=== PATIENT | female | born 1945 | race African-American/Black ===

== ENCOUNTER 2017-07-25 13:41 | Inpatient (IN) | payer OTHER ==
--- NOTE | 2017-07-25 13:52 | PDOC ---
Attending Attestation - Resident Resident Name: Jad Anand - ED Attending Attestation I have performed the following: I have examined & evaluated the patient, The case was reviewed & discussed with the resident, I agree w/resident's findings & plan, Exceptions are as noted - HPI HPI: 07/25/17 13:52 Chest Pain - Physicial Exam PE: 07/25/17 13:52 VSS, NAD - Medical Decision Making 07/25/17 13:[address] Anand assessment and plan
[2017-07-25] MEDS ORDERED: MAGNESIUM SULF 50% (8.12 MEQ/2 ML-1 GM VIAL) IVPB ONE (14:14)
[2017-07-25] MEDS ORDERED: MAGNESIUM SULF 50% (8.12 MEQ/2 ML-1 GM VIAL) ONE (14:18)
--- NOTE | 2017-07-25 14:24 | PDOC ---
History of Present Illness - General Chief Complaint: Chest Pain Stated Complaint: SLOW HEART BEAT Time Seen by Provider: 07/25/17 13:44 History Source: Patient, Family - History of Present Illness Initial Comments: 07/25/17 14:18 Patient is a 72F with history of HTN, HLD, and anemia here today complaining of vomiting, chest pain, fall and possible syncope. The patient reports that none of this happened, but her grandson reports that she called him saying that she had fallen in the bathroom and vomited several times. There was no blood in the vomit or trauma noted on the patient. EMS reports that she also complained of intermittent chest pain and diaphoresis. EMS also reports that she was madhav in the 50s with a systolic blood pressure of 180 before dropping her heart rate to 23 with a blood pressure of 90/60. She got 100ml of NS before their IV failed. Patient says that she did not fall, never had any chest pain and did not vomit. Her daughter says that she seems confused. Currently the patient only endorses some shortness of breath. Past History - Past Medical History Allergies/Adverse Reactions: Allergies Allergy/AdvReac Type Severity Reaction Status Date / Time amlodipine Allergy Verified 07/25/17 14:06 [place] And Derivatives Allergy Verified 07/25/17 14:06 Home Medications: Ambulatory Orders Aspirin [ASA -] 81 mg PO DAILY 07/25/17 Nifedipine [Procardia Xl] 60 mg PO DAILY 07/25/17 - Suicide/Smoking/Psychosocial Hx Smoking History: Former smoker Have you smoked in the past 12 months: No Information on smoking cessation initiated: No Review of Systems - Review of Systems Comments:: 07/25/17 14:24 GENERAL/CONSTITUTIONAL: No fever or chills. No weakness. HEAD, EYES, EARS, NOSE AND THROAT: No change in vision. No sore throat. CARDIOVASCULAR: No chest pain. Positive for shortness of breath RESPIRATORY: No cough, wheezing, or hemoptysis. GASTROINTESTINAL: Positive for nausea and vomting. Negative for diarrhea or constipation. GENITOURINARY: No dysuria, frequency, or change in urination. MUSCULOSKELETAL: Positive for left knee pain. No neck or back pain. SKIN: No rash NEUROLOGIC: No headache, vertigo, loss of consciousness, or change in strength/ sensation. HEMATOLOGIC/LYMPHATIC: Positive for history of anemia. Negative for history of easy bleeding, or history of blood clots. ALLERGIC/IMMUNOLOGIC: No hives or skin allergy. *Physical Exam - Vital Signs Last Vital Signs Temp Pulse Resp BP Pulse Ox 97.9 F 62 24 181/81 100 07/25/17 14:00 07/25/17 14:00 07/25/17 14:00 07/25/17 14:00 07/25/17 14:00 - Physical Exam Comments: 07/25/17 14:26 GENERAL: Awake, alert, and fully oriented, in no acute distress, repeating sentences, confused HEAD: No signs of trauma, normocephalic, atraumatic EYES: PERRLA, EOMI, sclera anicteric, conjunctiva clear ENT: Auricles normal inspection, hearing grossly normal, nares patent, oropharynx clear without exudates. Moist mucosa NECK: Normal ROM, supple, no lymphadenopathy, JVD, or masses, nontender to midline palpation BACK: No evidence of trauma, nontender to midline palpation ARMS: Shallow laceration on right arm, nontender to palpation, no other signs of trauma LUNGS: No distress, speaks full sentences, clear to auscultation bilaterally HEART: Regular rhythm, bradycardic, normal S1 and S2, no murmurs, rubs or gallops, peripheral pulses normal and equal bilaterally. ABDOMEN: Soft, nontender, normoactive bowel sounds. No guarding, no rebound. No masses EXTREMITIES: Normal inspection, Normal range of motion, no edema. No clubbing or cyanosis. NEUROLOGICAL: Cranial nerves II through XII grossly intact. Normal speech, no focal sensorimotor deficits, no ataxia, normal coordination SKIN: Warm, Dry, normal turgor, no rashes or lesions noted. Heart Score/ECG Review - History History: Highly suspicious - Electrocardiogram EKG: Normal - Age Age: >/= 65 - Risk Factors Risk Factors Heart Score: Yes Hx Hypercholesterolemia, Yes Hx Hypertension, Yes Smoking History Based on the list above the patient has:: >/=3 risk factors or Hx atherosclerotic disease - Troponin Troponin: </= normal limit - Score Heart Score - Total: 6 ED Treatment Course - LABORATORY CBC & Chemistry Diagram: 07/25/17 13:51 07/25/17 13:51 - RADIOLOGY Radiology Studies Ordered: Category Date Time Status HEAD CT WITHOUT CONTRAST [CT] Stat CT Scan 07/25/17 14:07 Ordered CHEST X-RAY PORTABLE* [RAD] Stat Radiology 07/25/17 14:07 Ordered Medical Decision Making - Medical Decision Making 07/25/17 14:28 Patient is a 72F with history of HTN, HLD, and anemia here today complaining of chest pain, sob, vomiting and diaphoresis. Bradycardic in the ED with stable blood pressures of 181/80. EMS report of bradycardia is concerning. Vital signs otherwise normal and stable. Differential diagnosis includes, but is not limited to: ACS, arrhythmia, mechanical fall, head trauma. EKG shows sinus bradycardia with 1st degree AV block (AZ 232) with a prolonged QTc (500). No ST elevations or depression. No t wave inversions. Combination of long qtc with 1st degree block with patient history is concerning. Will attempt to find an old EKG. Will evaluate this patient with EKG, continous monitoring, labs, chest x-ray, head ct, and UA. Will treat with 1g of mag. 07/25/17 15:04 Laboratory Tests 07/25/17 07/25/17 13:51 13:51 WBC 5.3 Hgb 12.8 Hct 39.6 Plt Count 230 Magnesium 2.2 Troponin I < 0.02 CBC normal, trop negative, mag normal. 07/25/17 15:05 CXR shows no acute cardiopulmonary process. 07/25/17 15:40 Spoke with JASWINDER Cruz, will admit to Med/Surg Tele. Consulting Dr Xiao, cardiology. *DC/Admit/Observation/Transfer Diagnosis at time of Disposition: Bradycardia - Discharge Dispostion Condition at time of disposition: Stable Admit: Yes
[2017-07-25 14:34] LABS: INR 0.98 (0.82-1.09); PROTHROMBIN TIME (PATIENT) 10.8 SEC (9.98-11.88)
[2017-07-25 14:36] LABS: EOSINOPHIL 0.4 % (0-4.5); MCH 28.9 pg (25.7-33.7); MCHC 32.4 g/dl (32.0-36.0); MEAN CELL VOLUME 89.1 fl (80-96); MEAN PLT VOLUME 8.8 fl (7.5-11.1); NEUTROPHILS 60.8 % (42.8-82.8); PLATELET COUNT 230 K/MM3 (134-434); WHITE BLOOD COUNT 5.3 K/mm3 (4.0-10.0)
[2017-07-25 14:44] LABS: ALBUMIN 3.8 g/dl (3.4-5.0); ALK PHOS 75 U/L (45-117); ANION GAP 12 (8-16); BILIRUBIN,TOTAL 0.4 mg/dL (0.2-1.0); CALCIUM 9.5 mg/dL (8.5-10.1); CO2 26 mmol/L (21-32); CPK 127 IU/L (26-192); CREATININE 0.8 mg/dL (0.55-1.02); GLUCOSE,RANDOM 150 mg/dL (74-106); MAGNESIUM 2.2 mg/dL (1.8-2.4); SGOT/AST 14 U/L (15-37); SGPT/ALT 19 U/L (12-78); TOT PROT 7.2 g/dl (6.4-8.2)
[2017-07-25 14:46] LABS: TROPONIN I < 0.02 ng/ml (0.00-0.05)
[2017-07-25 15:08] LABS: URINE APPEARANCE CLEAR; URINE BILIRUBIN NEGATIVE (NEGATIVE); URINE BLOOD 1+ (NEGATIVE); URINE COLOR STRAW; URINE GLUCOSE (UA) NEGATIVE (NEGATIVE); URINE KETONE 1+ (NEGATIVE); URINE LEUK ESTERASE NEGATIVE (NEGATIVE); URINE NITRITE NEGATIVE (NEGATIVE); URINE PROTEIN NEGATIVE (NEGATIVE); URINE UROBILINOGEN NEGATIVE mg/dL (0.2-1.0)
[2017-07-25 15:11] LABS: URINE RBC 2 /hpf (0-3); URINE WBC 2 /hpf (3-5)
[2017-07-25] MEDS ORDERED: POTASSIUM CHLORIDE TABS 10 MEQ TABLET.ER (FP) PO ONE (16:46)
[2017-07-25 17:33] VITALS: BMI 30.1
--- NOTE | 2017-07-25 21:02 | CONS ---
DATE OF CONSULTATION: 07/25/2017 REQUESTING PHYSICIAN: Nestor Cruz M.D. CARDIOLOGY CONSULTATION CHIEF COMPLAINT: 1. Lightheadedness. 2. Feeling of faintness. 3. History of chest pain. HISTORY OF PRESENT ILLNESS: Patient is a 72-year-old -Hung[place] female with history of hypertension, hypercholesterolemia, apparently had an episode of retrosternal chest tightness that occurred at rest. It was nonradiating, nonpleuritic in nature, and she also had sudden urge to micturate and ran to the bathroom, and after she completed the act, she got up, became lightheaded, and apparently fell to the floor and felt lightheaded but denies having presyncope or syncope. According to the hospital record, she also vomited. Paramedics were called, and while she was being transported initially was found to have systolic hypertension and apparently became bradycardic and blood pressure dropped to 90/60 mmHg. She was given normal saline. Patient states that she has never experienced similar symptoms in the past. There is no history of exertional, chest, arm, back, jaw pain, or discomfort. No history of exertional dyspnea, paroxysmal nocturnal dyspnea, or orthopnea. No history of palpitations, lightheadedness, dizziness, or syncope in the past. She denies having diaphoresis. Denies having diabetes mellitus. PAST HISTORY: As mentioned in the history of present illness. SURGICAL HISTORY: 1. Status post appendectomy. 2. Status post hysterectomy. 3. Status post appendectomy. SOCIAL HISTORY: She is a , has 3 sons and a daughter who are healthy. Was a smoker, since the age of 18, and stopped 5 years ago, apparently smoked half a pack of cigarettes per day. She has a social drink and a cup of coffee. FAMILY HISTORY: Father in his 70s of unknown cause. Mother in her 80s, she was hypertensive. Has 3 brothers and 2 sisters. Apparently 2 of her siblings have high blood pressure. There is strong family history of hypertension on the maternal side. ALLERGIES: None reported. MEDICATION: 1. Aspirin 81 mg p.o. daily. 2. Nifedipine extended release 60 mg p.o. daily. REVIEW OF SYSTEMS: Constitutional: No history of chills, fever, or night sweats. No history of unintentional weight loss. HEENT: No history of recent headaches, diplopia, blurred vision. No history of epistaxis, hoarseness, tinnitus, or deafness reported. Cardiovascular: See history of present illness. Respiratory: No history of cough, expectoration or hemoptysis. Gastrointestinal: See history of present illness. No history of abdominal pain or discomfort. No history of melena or hematemesis. No history of change in bowel habits. Neurological: No history of seizures, or documented syncope. No history of focal weakness. Endocrine: No history of polyuria, polydipsia. Denies intolerance to cold or warm weather. Musculoskeletal: No history of myalgias or arthralgias. Hematological: No history of ecchymosis, bleeding, or anemia. PHYSICAL EXAMINATION: General: A 72-year-old alert female at the time of examination was in no distress, no pallor, cyanosis, clubbing, or jaundice. Vital signs: Blood pressure 165/109 mmHg. Pulse 56 beats per minute and regular. Temperature 98.5 degrees Fahrenheit. Weight 170 pounds. Oxygen saturation 97% on 2 L of oxygen. Neck: Supple. No jugulovenous distention, carotids were 2+, upstrokes were normal, no bruits were heard, and no thyromegaly was present. Heart: PMI was in the 5th intercostal space, no heaves or thrills. S1 and S2 were normal. No murmur or gallops were heard. Lungs: Clear on auscultation. Chest: Normal AP diameter. Expansion was symmetrical. Abdomen: Soft, protuberant, nontender, no hepatosplenomegaly or palpable masses were felt. No bruits were heard, and bowel sounds were present. Extremities: No calf tenderness or dependent edema, femoral pulses were 2+, dorsalis pedis and posterior tibial pulses could not be palpated. ECG dated July 25, 2017, at 1351 hours, sinus rhythm with borderline first-degree AV block, atypical R wave progression in V2, nonspecific ST abnormalities, no previous ECG is available for comparison. X-ray chest, impression: Unremarkable examination. CT of the head, impression: Moderate atrophy and mild chronic microvascular ischemic changes. No acute intracranial pathology is identified. The calvarium is intact. Correlate clinically to determine further evaluation and followup. CBC: WBC count 5300, hemoglobin 12.8 g/dL, platelet count 230,000. Differential was normal. Chemistry: Sodium 141, potassium 3.4, chloride 103, CO2 of 26 mmol/L. BUN 13, creatinine 0.8 mg/dL. Random glucose 150 mg/dL. Calcium was 9.5 mg/dL. Magnesium was 2.2. CK was 127, troponin was less than 0.02. IMPRESSION: 1. Chest pain syndrome, etiology to be determined, coronary artery disease, angina pectoris needs to be excluded. 2. Post micturition near-syncopal episode. 3. Hypertension, hypertensive cardiovascular disease, poorly controlled. 4. History of hypercholesterolemia. RECOMMENDATION: 1. Serial EKG and enzymes. 2. Control of blood pressure. 3. Add Benicar 20 mg p.o. daily. 4. Continue Procardia at 60 mg p.o. daily. 5. Close cardiac monitoring. 6. Holter monitor. 7. Echocardiogram for evaluation of left ventricular systolic function. 8. T3, T4, TSH. 9. Further suggestions if necessary will depend upon the results of the above mentioned tests. Thank you for your referral. Philippe [id number]
[2017-07-25] MEDS: VALSARTAN 160 MG TABLET (UD) PO SCH (22:09)
[2017-07-25 22:10] LABS: CPK 170 IU/L (26-192)
[2017-07-25 22:11] LABS: TROPONIN I < 0.02 ng/ml (0.00-0.05)
[2017-07-26 08:09] LABS: MCH 29.3 pg (25.7-33.7); MCHC 32.8 g/dl (32.0-36.0); MEAN CELL VOLUME 89.3 fl (80-96); MEAN PLT VOLUME 8.5 fl (7.5-11.1); PLATELET COUNT 233 K/MM3 (134-434); RDW 14.2 % (11.6-15.6); WHITE BLOOD COUNT 6.2 K/mm3 (4.0-10.0)
[2017-07-26 08:31] LABS: CPK 226 IU/L (26-192); TROPONIN I < 0.02 ng/ml (0.00-0.05)
[2017-07-26 08:39] LABS: ALBUMIN 3.2 g/dl (3.4-5.0); ANION GAP 5 (8-16); BILIRUBIN,TOTAL 0.3 mg/dL (0.2-1.0); CALCIUM 9.4 mg/dL (8.5-10.1); CHOLESTEROL 229 mg/dL (50-200); CO2 30 mmol/L (21-32); CREATININE 0.7 mg/dL (0.55-1.02); GLUCOSE,RANDOM 81 mg/dL (74-106); SGOT/AST 15 U/L (15-37); SGPT/ALT 17 U/L (12-78); TOT PROT 6.3 g/dl (6.4-8.2)
[2017-07-26 08:46] LABS: ALK PHOS 63 U/L (45-117); FREE T4 0.89 ng/dl (0.76-1.46); THYROID STIMULATING HORMONE 1.13 uIU/ml (0.358-3.74)
[2017-07-26] MEDS: ASPIRIN COATED 81 MG TABLET.EC PO SCH (09:28)
[2017-07-26] MEDS: VALSARTAN 160 MG TABLET (UD) PO SCH (09:28)
--- NOTE | 2017-07-26 09:55 | HP ---
DATE OF ADMISSION: DATE OF DICTATION: 07/26/2017 HISTORY OF PRESENT ILLNESS: This is a 72-year-old -[place] female known to have hypertension, hypercholesterolemia. Yesterday, she got admitted with chest pain, and patient fell in the bathroom. She also had an episode of vomiting in the ER. When she came in, she was bradycardic. So, she got admitted with a diagnosis of rule out ME, chest pain, and cardiac arrhythmia. SURGICAL HISTORY: She had appendectomy and hysterectomy in the past. 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 She has family. Her . History of smoking in the past, but she is not a smoker now. MEDICATIONS: At present, she is on aspirin and nifedipine, Procardia XL 60 mg once a day. ALLERGIES: No known allergies. PHYSICAL EXAMINATION: Vital signs: This morning, her blood pressure is 150/70, pulse 56, respirations 20, temperature 98. HEENT: Unremarkable. Neck: Supple. No JVD. Lungs: Clear. Heart: S1, S2 normal. No S3, S4. Breasts: No masses. Abdomen: Soft. Extremities: Legs no edema. Neurologic: Grossly normal. LABORATORY REPORTS: WBC 6.2, hemoglobin 12.1, platelets 233. Chemistry: Sodium 142, potassium 3.6, chloride 107, CO2 of 30, BUN 11, creatinine 0.7. Her CPK MB is high 4.7. Troponin three times is negative. EKG normal sinus rhythm, sinus bradycardia. Thyroid functions are also normal. Chest x-ray negative. CT of the head mild chronic microvascular ischemic changes. IMPRESSION/FINAL DIAGNOSIS: Chest pain, rule out myocardial infarction, syncope, bradycardia PLAN: Cardiology followup with Dr. Saenz, cardiac monitoring, continue present medications. Philippe [id number]
[2017-07-26] MEDS ORDERED: NIFEDIPINE PO SCH (10:00)
--- NOTE | 2017-07-26 10:24 | EKG ---
Test Reason : Blood Pressure : / mmHG Vent. Rate : 051 BPM Atrial Rate : 051 BPM P-R Int : 198 ms QRS Dur : 098 ms QT Int : 442 ms P-R-T Axes : 060 -08 004 degrees QTc Int : 407 ms SINUS BRADYCARDIA OTHERWISE NORMAL ECG WHEN COMPARED WITH ECG OF 25-JUL-2017 13:51, [place] INTERVAL HAS DECREASED QT HAS SHORTENED Confirmed by ALVARO UMANA MD ([id number]) on 07/26/2017 10:24:15 AM Referred By: SHEIK SIMPSON DRH Confirmed By:ALVARO UMANA MD
--- NOTE | 2017-07-26 14:40 | EKG ---
Test Reason : Blood Pressure : / mmHG Vent. Rate : 059 BPM Atrial Rate : 059 BPM P-R Int : 232 ms QRS Dur : 100 ms QT Int : 506 ms P-R-T Axes : 058 018 043 degrees QTc Int : 500 ms SINUS BRADYCARDIA WITH 1ST DEGREE A-V BLOCK PROLONGED QT ABNORMAL ECG NO PREVIOUS ECGS AVAILABLE Confirmed by ALVARO UMANA MD ([id number]) on 07/26/2017 2:40:38 PM Referred By: Confirmed By:ALVARO UMANA MD
[2017-07-27] MEDS: ASPIRIN COATED 81 MG TABLET.EC PO SCH (09:16)
[2017-07-27] MEDS: VALSARTAN 160 MG TABLET (UD) PO SCH (09:16)
[2017-07-27] MEDS: NIFEdipine E.R 60 MG TABLET (UD) PO SCH (09:20)
--- NOTE | 2017-07-27 09:20 | PN ---
Progress Note, Physician Chief Complaint: feels better History of Present Illness: Admitted with near syncope ,chest pain and Bacardicardia - Current Medication List Current Medications: Active Medications Aspirin (Ecotrin -) 81 mg PO DAILY [facility] Last Admin: 07/26/17 09:28 Dose: 81 mg Non-Formulary Med-Pt 's Own Med ( Procardia Xl 60mg Brand) 1 each PO DAILY [facility] Valsartan (Diovan -) 160 mg PO DAILY [facility] Last Admin: 07/26/17 09:28 Dose: 160 mg - Objective Vital Signs: Vital Signs Temperature 97.4 F L 07/27/17 06:00 Pulse Rate 63 07/27/17 06:00 Respiratory Rate 20 07/27/17 06:00 Blood Pressure 141/68 07/27/17 06:00 O2 Sat by Pulse Oximetry (%) 96 07/26/17 21:00 Constitutional: Yes: No Distress Eyes: Yes: WNL HENT: Yes: WNL Neck: Yes: WNL Cardiovascular: Yes: WNL Respiratory: Yes: WNL Gastrointestinal: Yes: Normal Bowel Sounds ...Rectal Exam: Yes: Deferred Genitourinary: Yes: WNL Breast(s): Yes: WNL Musculoskeletal: Yes: WNL Extremities: Yes: WNL Edema: No Neurological: Yes: Alert Labs: CBC, BMP 07/26/17 05:47 07/26/17 05:47 INR, PTT INR 0.98 (0.82-1.09) 07/25/17 13:51 - ....Imaging Ultrasound: Pending Assessment/Plan After echocardiogram possible discharge home
--- NOTE | 2017-07-27 10:35 | PN ---
Progress Note (short form) - Note Progress Note: S: 72 year old female history of HTN, hypercholesterolemia, admitted with retrosternal chest discomfort that occurred at rest, followed by lightheadedness , apparently vomited and paramedics found her bradycardic and had a low BP. The lightheadedness occurred after she had urgency of micturation. Patient has had no further chest discomfort, dyspnea, PND, or orthopnea. No history of lightheadedness, dizziness, presyncope or syncope. While in the hospital she was found to be hypertensive. Active Medications Generic Name Dose Route Start Last Admin Trade Name Freq PRN Reason Stop Dose Admin Aspirin 81 mg 07/26/17 10:00 07/27/17 09:16 Ecotrin - PO 81 mg DAILY LEELEE Administration Nifedipine 60 mg 07/27/17 10:00 07/27/17 09:20 Procardia Xl - PO 60 mg DAILY LEELEE Administration Valsartan 160 mg 07/25/17 19:45 07/27/17 09:16 Diovan - PO 160 mg DAILY LEELEE Administration O: 72 year old female was in no acute distress, no pallor, cyanosis, clubbing, or jaundice. Last Vital Signs Temp Pulse Resp BP Pulse Ox 98.1 F 60 18 157/90 96 07/27/17 09:59 07/27/17 09:59 07/27/17 09:59 07/27/17 09:59 07/27/17 09:00 Neck: Supple, no JVD, negative HJR, carotids were equal and upstrokes were normal, no thyromegaly appreciated. Heart: PMI was in the 5th intercostal space, no heaves or thrills, S1 and S2 were normal. No murmurs or gallops were appreciated. Lungs: Clear on auscultation bilaterally. Abdomen: Soft, nontender, no hepatosplenomegaly appreciated, and no palpable masses were felt. Extremities: No calf tenderness or dependent edema. Pulses are normal. CBC, BMP 07/26/17 05:47 07/26/17 05:47 Laboratory Results - last 24 hr 07/26/17 05:47 Free T3 2.3 Impression: 1. Lightheadedness most likely related to micturation. 2. Hypertension, hypertensive cardiovascular disease 3. Hypercholesterolemia. Recommendations: 1. Consider adding statins as total and LDL cholesterol are elevated. 2. Holter monitor. 3. Echocardiogram. 4. May require further adjustment of antihypertensive therapy if BP remains elevated. Attestation: Documentation prepared by Bernice Lord, acting as remote medical coder for Davin Saenz MD.
[2017-07-28 06:08] VITALS: TEMP 98.1
[2017-07-28] MEDS: VALSARTAN 160 MG TABLET (UD) PO SCH (09:54)
[2017-07-28] MEDS: ASPIRIN COATED 81 MG TABLET.EC PO SCH (09:54)
[2017-07-28] MEDS: NIFEdipine E.R 60 MG TABLET (UD) PO SCH (09:54)
--- NOTE | 2017-07-28 10:54 | DS ---
Physical Examination Vital Signs: Vital Signs Temperature 98.1 F 07/28/17 06:07 Pulse Rate 63 07/28/17 06:07 Respiratory Rate 20 07/28/17 06:07 Blood Pressure 144/65 07/28/17 06:07 O2 Sat by Pulse Oximetry (%) 98 07/27/17 21:00 Findings/Remarks: NJ ruled out,echo borderline LVH Constitutional: Yes: No Distress Eyes: Yes: Occular Prosthesis HENT: Yes: WNL, Tonsillar Exudate Cardiovascular: Yes: WNL Respiratory: Yes: WNL Gastrointestinal: Yes: WNL ...Rectal Exam: Yes: Deferred Renal/: Yes: WNL Breast(s): Yes: WNL Musculoskeletal: Yes: WNL Extremities: Yes: WNL Edema: No Peripheral Pulses WNL: Yes Integumentary: Yes: WNL Neurological: Yes: WNL Psychiatric: Yes: WNL Labs: CBC, BMP 07/26/17 05:47 07/26/17 05:47 Discharge Summary Reason For Visit: BRADYCARDIA Current Active Problems Bradycardia (Acute) Condition: Stable - Home Medications Comprehensive Discharge Medication List: Ambulatory Orders Aspirin [ASA -] 81 mg PO DAILY 07/25/17 Nifedipine [Procardia Xl] 60 mg PO DAILY 07/25/17
[2017-07-28 13:46] VITALS: BP 127/68; PULSE 62
[2017-07-29] MEDS ORDERED: ASPIRIN 81 MG CHEWABLE TABLETS PO SCH (10:00)
[2017-07-29] MEDS ORDERED: PATIENT'S OWN MEDICATION (NON-FORMULARY) (Nifedipine [Procardia Xl] 60 MG) PO SCH (10:00)
== END 2017-07-28 13:42 | disposition home or self-care (01) | DRG 310 ==
LOC: JER 13:41 → JERBED 15:42 → J4W 17:11
PROVIDERS: ADMIT Internal Medicine; ATTEND Internal Medicine
DX: R00.1 Bradycardia, unspecified (principal); E78.5 Hyperlipidemia, unspecified; R55 Syncope and collapse; I11.9 Hypertensive heart disease without heart failure; R07.9 Chest pain, unspecified
CPT/HCPCS: 36415; 70450-TC; 71010-TC; 80053; 80061; 81003; 81015; 82553; 83721; 83735; 84439; 84443; 84481; 84484; 85025; 85027; 85610; 93005; 93010; 93306-TC; 99284-25

== ENCOUNTER 2021-01-10 07:08 | Day surgery (SDC) | payer OTHER ==
[2020-12-27 12:26] VITALS: BMI 26.5
[2021-01-10] MEDS ORDERED: CIPROFLOXACIN HCL 0.3% OPHTH 2.5ML BOTTLE ONE (08:13)
[2021-01-10] MEDS ORDERED: PHENYLEPHRINE 2.5% OPHTH SOLN 15 ML BOTTLE ONE (08:13)
[2021-01-10] MEDS ORDERED: CYCLOPENTOLATE 2% OPHTH SOLN 2 ML BOTTLE ONE (08:13)
[2021-01-10] MEDS ORDERED: TETRACAINE 0.5% OPHTH SOLN 2 ML BOTTLE ONE ×2 (08:14→09:51)
[2021-01-10] MEDS ORDERED: TROPICAMIDE 1% OPHTH SOLN 15 ML BOTTLE ONE (08:14)
[2021-01-10] MEDS ORDERED: CIPROFLOXACIN HCL 0.3% OPHTH 2.5ML BOTTLE OD SCH (08:45)
[2021-01-10] MEDS ORDERED: PHENYLEPHRINE 2.5% OPHTH SOLN 15 ML BOTTLE OD SCH (08:45)
[2021-01-10] MEDS ORDERED: TROPICAMIDE 1% OPHTH SOLN 15 ML BOTTLE OD SCH (08:45)
[2021-01-10] MEDS ORDERED: CYCLOPENTOLATE 2% OPHTH SOLN 2 ML BOTTLE OD SCH (08:45)
[2021-01-10] MEDS ORDERED: MIDAZOLAM HCL 2 MG/2 ML SINGLE DOSE VIAL ONE (09:11)
[2021-01-10] MEDS ORDERED: TRYPAN BLUE 0.5 ML DISP.SYRIN ONE (09:18)
[2021-01-10] MEDS ORDERED: BSS (NA/CA/MG/K) BALANCED SALT SOLUTION OPHTH SOLN 15 ML BOTTLE ONE (09:51)
[2021-01-10] MEDS ORDERED: EPI-SHUGARCAINE (EPINEPHRINE 0.025% & LIDOCAINE-PF 0.75%) 4ML ONE (09:51)
[2021-01-10] MEDS ORDERED: POVIDONE-IODINE 5% OPHTHALMIC PREP 30 ML SOLUTION ONE (09:51)
[2021-01-10] MEDS ORDERED: ACETYLCHOLINE 1:100 INTRA-OCUL 20 MG/2 ML KIT ONE (09:51)
[2021-01-10] MEDS ORDERED: TETRACAINE 0.5% OPHTH SOLN 2 ML BOTTLE OD ONE (10:00)
[2021-01-10 10:05] VITALS: PULSE 74
[2021-01-10 10:45] VITALS: BP 167/70; TEMP 98
== END 2021-01-10 10:45 | disposition home or self-care (01) ==
LOC: FASU 07:08
PROVIDERS: ATTEND Ophthalmology
PROC: 08RJ3JZ Replacement of Right Lens with Synthetic Substitute, Percutaneous Approach (ICD-10-PCS; principal; 2021-01-10 09:18)
DX: H25.89 Other age-related cataract (principal)

== ENCOUNTER 2021-02-14 08:46 | Day surgery (SDC) | payer OTHER ==
[2021-02-08 17:31] VITALS: BMI 26.5
[2021-02-14] MEDS: CYCLOPENTOLATE 2% OPHTH SOLN 2 ML BOTTLE ONE ×3 (09:50→10:00)
[2021-02-14] MEDS: TROPICAMIDE 1% OPHTH SOLN 15 ML BOTTLE ONE ×3 (09:50→10:00)
[2021-02-14] MEDS: CIPROFLOXACIN 0.3% EYE DROPS 5 ML BOTTLE ONE ×3 (09:50→10:00)
[2021-02-14] MEDS: PHENYLEPHRINE 2.5% OPHTH SOLN 15 ML BOTTLE ONE ×3 (09:50→10:00)
[2021-02-14] MEDS ORDERED: POVIDONE-IODINE 5% OPHTHALMIC PREP 30 ML SOLUTION ONE (10:35)
[2021-02-14] MEDS ORDERED: BETAXOLOL HCL 0.25% OPHTHALMIC 10 ML DROPSBTL ONE (10:35)
[2021-02-14] MEDS ORDERED: TETRACAINE 0.5% OPHTH SOLN 2 ML BOTTLE ONE (10:35)
[2021-02-14] MEDS ORDERED: EPI-SHUGARCAINE (EPINEPHRINE 0.025% & LIDOCAINE-PF 0.75%) 4ML ONE (10:35)
[2021-02-14] MEDS ORDERED: TRYPAN BLUE 0.5 ML DISP.SYRIN ONE (10:35)
[2021-02-14] MEDS ORDERED: ACETYLCHOLINE 1:100 INTRA-OCUL 20 MG/2 ML KIT ONE (10:36)
[2021-02-14] MEDS ORDERED: MIDAZOLAM HCL 2 MG/2 ML SINGLE DOSE VIAL ONE (10:48)
[2021-02-14 11:47] VITALS: BP 144/70; PULSE 53
[2021-02-14 12:03] VITALS: TEMP 98
== END 2021-02-14 12:06 | disposition home or self-care (01) ==
LOC: FASU 08:46
PROVIDERS: ATTEND Ophthalmology
PROC: 08RK3JZ Replacement of Left Lens with Synthetic Substitute, Percutaneous Approach (ICD-10-PCS; principal; 2021-02-14 10:56)
DX: H25.89 Other age-related cataract (principal)

== ENCOUNTER 2021-11-13 20:40 | Inpatient (IN) | payer OTHER ==
[2021-11-13 21:06] VITALS: BMI 28.3
[2021-11-13 22:45] LABS: BASO % 0.5 % (0-2.0); HEMATOCRIT 40.5 % (32.4-45.2); HEMOGLOBIN 12.8 GM/dL (10.7-15.3); LYMPH % 13.3 % (8-40); MCH 29.2 pg (25.7-33.7); MCHC 31.7 g/dl (32.0-36.0); MEAN CELL VOLUME 92.2 fl (80-96); MEAN PLT VOLUME 8.4 fl (7.5-11.1); MONO % 4.4 % (3.8-10.2); NEUT % 81.8 % (42.8-82.8); PLATELET COUNT 176 10^3/uL (134-434); RBC 4.39 M/mm3 (3.60-5.2); RDW 12.5 % (11.6-15.6); WHITE BLOOD COUNT 6.2 K/mm3 (4.0-10.0)
[2021-11-13 22:52] LABS: INR 0.98 (0.83-1.09); PROTHROMBIN TIME (PATIENT) 11.3 SEC (9.7-13.0)
[2021-11-13 22:54] LABS: ACTIVATED PTT 22.5 SECONDS (25.2-36.5); CHLORIDE 105 mmol/L (98-107); SODIUM 141 mmol/L (136-145)
[2021-11-13 22:56] LABS: CALCIUM 9.4 mg/dL (8.5-10.1)
[2021-11-13 22:57] LABS: ALBUMIN 3.8 g/dl (3.4-5.0); ANION GAP 9 MMOL/L (8-16); CO2 27 mmol/L (21-32); GLUCOSE,RANDOM 121 mg/dL (74-106)
[2021-11-13 23:00] LABS: CREATININE 0.9 mg/dL (0.55-1.3); SGOT/AST 18 U/L (15-37); SGPT/ALT 18 U/L (13-61)
[2021-11-13 23:02] LABS: BILIRUBIN,TOTAL 0.2 mg/dL (0.2-1); TOT PROT 7.4 g/dl (6.4-8.2)
[2021-11-13 23:03] LABS: ALK PHOS 73 U/L (45-117)
[2021-11-13] MEDS ORDERED: CEFTRIAXONE 1,000 MG in DEXTROSE 5%-WATER - 50 ML IVPB ONE (23:54)
[2021-11-13] MEDS ORDERED: AZITHROMYCIN IVPB 500 MG in DEXTROSE 5%-WATER - 250 ML IVPB ONE (23:54)
[2021-11-14] MEDS ORDERED: AZITHROMYCIN IVPB 500 MG/250 ML BAG IVPB ONE (00:03)
[2021-11-14] MEDS ORDERED: CEFTRIAXONE 1 GM/50 ML BAG ONE (00:03)
[2021-11-14] MEDS ORDERED: POLYETHYLENE GLYCOL (HEALTHYLAX) 3350 17 GM PACKET PO PRN (00:52)
[2021-11-14 05:02] LABS: BASO % 0.8 % (0-2.0); HEMATOCRIT 37.2 % (32.4-45.2); HEMOGLOBIN 12.4 GM/dL (10.7-15.3); LYMPH % 28.1 % (8-40); MCH 30.2 pg (25.7-33.7); MCHC 33.5 g/dl (32.0-36.0); MEAN CELL VOLUME 90.4 fl (80-96); MEAN PLT VOLUME 7.8 fl (7.5-11.1); MONO % 6.4 % (3.8-10.2); NEUT % 64.7 % (42.8-82.8); PLATELET COUNT 161 10^3/uL (134-434); RBC 4.11 M/mm3 (3.60-5.2); RDW 12.6 % (11.6-15.6); WHITE BLOOD COUNT 4.8 K/mm3 (4.0-10.0)
[2021-11-14 05:21] LABS: CHLORIDE 105 mmol/L (98-107); SODIUM 142 mmol/L (136-145)
[2021-11-14 05:23] LABS: ANION GAP 7 MMOL/L (8-16); BLOOD UREA NITROGEN 17.2 mg/dL (7-18); CALCIUM 9.1 mg/dL (8.5-10.1); CO2 30 mmol/L (21-32); GLUCOSE,RANDOM 112 mg/dL (74-106); MAGNESIUM 2.2 mg/dL (1.8-2.4)
[2021-11-14 05:27] LABS: CREATININE 0.8 mg/dL (0.55-1.3); LDH 193 U/L (84-246); PHOSPHOROUS 3.1 mg/dL (2.5-4.9)
[2021-11-14 08:05] LABS: EPI CELLS 3 /uL (0-25.1); HYALINE CASTS 2 /uL (0-3.1); URINE APPEARANCE CLEAR; URINE BACTERIA 0 /uL (0-1359); URINE BILIRUBIN NEGATIVE (NEGATIVE); URINE COLOR YELLOW; URINE GLUCOSE (UA) NEGATIVE (NEGATIVE); URINE KETONE NEGATIVE (NEGATIVE); URINE LEUK ESTERASE NEGATIVE (NEGATIVE); URINE NITRITE NEGATIVE (NEGATIVE); URINE PROTEIN 1+ (NEGATIVE); URINE RBC 14 /uL (0-23.9); URINE UROBILINOGEN 0.2 mg/dL (0.2-1.0); URINE WBC 5 /uL (0-25.8)
[2021-11-14] MEDS ORDERED: amLODIPine BESYLATE 2.5 MG TABLET (FP) PO SCH (10:00)
[2021-11-14] MEDS ORDERED: ASCORBIC ACID 500 MG TABLET (FP) ONE (10:02)
[2021-11-14] MEDS ORDERED: amLODIPine BESYLATE 2.5 MG TABLET (FP) ONE ×2 (10:03→18:37)
[2021-11-14] MEDS ORDERED: ZINC SULFATE 220 MG CAPSULE (FP) ONE (10:03)
[2021-11-14] MEDS ORDERED: LOSARTAN POTASSIUM 50 MG TABLET ONE (10:03)
[2021-11-14] MEDS ORDERED: CHOLECALCIFEROL (VIT D3) 1,000 UNIT (25 MCG) TABLET ONE (10:03)
[2021-11-14] MEDS ORDERED: ENOXAPARIN NA (PORCINE) 40 MG/0.4 ML DISP.SYRIN SQ ONE (10:04)
[2021-11-14] MEDS: LOSARTAN POTASSIUM 50 MG TABLET PO SCH ×2 (11:30→12:50)
[2021-11-14] MEDS: CHOLECALCIFEROL (VIT D3) 1,000 UNIT (25 MCG) TABLET PO SCH (11:30)
[2021-11-14] MEDS: ENOXAPARIN NA (PORCINE) 40 MG/0.4 ML DISP.SYRIN SQ SCH (11:30)
[2021-11-14] MEDS: ASCORBIC ACID 500 MG TABLET (FP) PO SCH ×2 (11:30→12:50)
[2021-11-14] MEDS: ZINC SULFATE 220 MG CAPSULE (FP) PO SCH (11:30)
[2021-11-14] MEDS: MEMANTINE HCL 5 MG TABLET (UD) PO SCH ×3 (12:50→22:56)
[2021-11-14] MEDS ORDERED: amLODIPine BESYLATE 2.5 MG TABLET (FP) PO ONE (17:10)
[2021-11-14] MEDS ORDERED: amLODIPine BESYLATE 5 MG TABLET (FP) ONE (18:37)
[2021-11-14] MEDS ORDERED: CEFTRIAXONE 1 GM in DEXTROSE 5%-WATER - 50 ML IVPB SCH (22:00)
[2021-11-15] MEDS ORDERED: AZITHROMYCIN IVPB 500 MG in DEXTROSE 5%-WATER - 250 ML IVPB SCH (02:00)
[2021-11-15 08:42] LABS: HEMATOCRIT 37.7 % (32.4-45.2); HEMOGLOBIN 12.7 GM/dL (10.7-15.3); MCH 30.4 pg (25.7-33.7); MCHC 33.6 g/dl (32.0-36.0); MEAN CELL VOLUME 90.4 fl (80-96); MEAN PLT VOLUME 8.3 fl (7.5-11.1); PLATELET COUNT 154 10^3/uL (134-434); RBC 4.17 M/mm3 (3.60-5.2); RDW 12.6 % (11.6-15.6); WHITE BLOOD COUNT 4.2 K/mm3 (4.0-10.0)
[2021-11-15] MEDS: ACETAMINOPHEN 325 MG TABLET (FP) PO PRN ×2 (09:00→19:10)
[2021-11-15] MEDS ORDERED: amLODIPine BESYLATE 5 MG TABLET (FP) ONE (09:00)
[2021-11-15] MEDS ORDERED: ACETAMINOPHEN 325 MG TABLET (FP) ONE ×2 (09:00→19:09)
[2021-11-15] MEDS ORDERED: ZINC SULFATE 220 MG CAPSULE (FP) ONE (09:00)
[2021-11-15] MEDS ORDERED: ASCORBIC ACID 500 MG TABLET (FP) ONE (09:00)
[2021-11-15] MEDS ORDERED: CHOLECALCIFEROL (VIT D3) 1,000 UNIT (25 MCG) TABLET ONE (09:01)
[2021-11-15] MEDS ORDERED: ENOXAPARIN NA (PORCINE) 40 MG/0.4 ML DISP.SYRIN SQ ONE (09:01)
[2021-11-15 09:03] LABS: BLOOD UREA NITROGEN 15.3 mg/dL (7-18); CALCIUM 8.9 mg/dL (8.5-10.1)
[2021-11-15 09:04] LABS: MAGNESIUM 2.3 mg/dL (1.8-2.4)
[2021-11-15 09:07] LABS: CREATININE 0.8 mg/dL (0.55-1.3); PHOSPHOROUS 3.2 mg/dL (2.5-4.9)
[2021-11-15] MEDS ORDERED: LOSARTAN POTASSIUM 50 MG TABLET ONE (09:58)
[2021-11-15] MEDS ORDERED: amLODIPine BESYLATE 5 MG TABLET (FP) PO SCH (10:00)
[2021-11-15] MEDS: ENOXAPARIN NA (PORCINE) 40 MG/0.4 ML DISP.SYRIN SQ SCH (10:12)
[2021-11-15] MEDS: ASCORBIC ACID 500 MG TABLET (FP) PO SCH (10:12)
[2021-11-15] MEDS: amLODIPine BESYLATE 5 MG TABLET (FP) PO SCH (10:12)
[2021-11-15] MEDS: MEMANTINE HCL 5 MG TABLET (UD) PO SCH ×2 (10:12→23:52)
[2021-11-15] MEDS: LOSARTAN POTASSIUM 50 MG TABLET PO SCH (10:12)
[2021-11-15] MEDS: CHOLECALCIFEROL (VIT D3) 1,000 UNIT (25 MCG) TABLET PO SCH (10:12)
[2021-11-15] MEDS: ZINC SULFATE 220 MG CAPSULE (FP) PO SCH (10:12)
[2021-11-15] MEDS ORDERED: CEFTRIAXONE 1 GM/50 ML BAG ONE (19:46)
[2021-11-15] MEDS: CEFTRIAXONE 1 GM in DEXTROSE 5%-WATER - 50 ML IVPB SCH (19:53)
[2021-11-15] MEDS: AZITHROMYCIN IVPB 250 MG in DEXTROSE 5%-WATER - 250 ML IVPB SCH (23:52)
[2021-11-16] MEDS ORDERED: amLODIPine BESYLATE 5 MG TABLET (FP) PO ONE (01:55)
[2021-11-16] MEDS ORDERED: amLODIPine BESYLATE 5 MG TABLET (FP) ONE (01:58)
[2021-11-16 08:08] LABS: BASO % 0.4 % (0-2.0); EOS % 0.1 % (0-4.5); HEMATOCRIT 39.8 % (32.4-45.2); HEMOGLOBIN 12.8 GM/dL (10.7-15.3); LYMPH % 18.9 % (8-40); MCH 29.3 pg (25.7-33.7); MEAN CELL VOLUME 91.5 fl (80-96); MEAN PLT VOLUME 8.5 fl (7.5-11.1); MONO % 6.3 % (3.8-10.2); NEUT % 74.3 % (42.8-82.8); PLATELET COUNT 174 10^3/uL (134-434); RBC 4.35 M/mm3 (3.60-5.2); RDW 12.4 % (11.6-15.6); WHITE BLOOD COUNT 4.9 K/mm3 (4.0-10.0)
[2021-11-16] MEDS ORDERED: cefTRIAXone SODIUM 1 GM VIAL ONE (08:35)
[2021-11-16] MEDS ORDERED: DEXTROSE 5%-WATER - 50 ML IVPB ONE (08:36)
[2021-11-16 08:43] LABS: BLOOD UREA NITROGEN 12.7 mg/dL (7-18)
[2021-11-16 08:44] LABS: CREATININE 0.8 mg/dL (0.55-1.3)
[2021-11-16 08:46] LABS: ALBUMIN 3.2 g/dl (3.4-5.0); BILIRUBIN,TOTAL 0.3 mg/dL (0.2-1); PHOSPHOROUS 3.2 mg/dL (2.5-4.9); TOT PROT 6.5 g/dl (6.4-8.2)
[2021-11-16 08:47] LABS: CALCIUM 8.9 mg/dL (8.5-10.1); MAGNESIUM 2.2 mg/dL (1.8-2.4)
[2021-11-16] MEDS: CHOLECALCIFEROL (VIT D3) 1,000 UNIT (25 MCG) TABLET PO SCH (10:50)
[2021-11-16] MEDS: AZITHROMYCIN IVPB 250 MG in DEXTROSE 5%-WATER - 250 ML IVPB SCH (10:50)
[2021-11-16] MEDS: ENOXAPARIN NA (PORCINE) 40 MG/0.4 ML DISP.SYRIN SQ SCH (10:50)
[2021-11-16] MEDS: CEFTRIAXONE 1 GM in DEXTROSE 5%-WATER - 50 ML IVPB SCH (10:50)
[2021-11-16] MEDS: ZINC SULFATE 220 MG CAPSULE (FP) PO SCH (10:50)
[2021-11-16] MEDS: amLODIPine BESYLATE 5 MG TABLET (FP) PO SCH (10:50)
[2021-11-16] MEDS ORDERED: POTASSIUM CHLORIDE TABS 20 MEQ TABLET.ER (FP) PO ONE (11:21)
[2021-11-16] MEDS ORDERED: POLYETHYLENE GLYCOL (HEALTHYLAX) 3350 17 GM PACKET PO PRN (19:33)
[2021-11-16] MEDS ORDERED: ACETAMINOPHEN 325 MG TABLET (FP) PO PRN (19:33)
[2021-11-16] MEDS: MEMANTINE HCL 5 MG TABLET (UD) PO SCH (22:02)
[2021-11-17] MEDS ORDERED: ASCORBIC ACID 500 MG TABLET (FP) PO SCH (10:00)
[2021-11-17] MEDS ORDERED: LOSARTAN POTASSIUM 50 MG TABLET PO SCH (10:00)
[2021-11-17] MEDS ORDERED: amLODIPine BESYLATE 10 MG TABLET (FP) PO SCH (10:00)
[2021-11-17] MEDS ORDERED: ENOXAPARIN NA (PORCINE) 40 MG/0.4 ML DISP.SYRIN SQ SCH (10:00)
[2021-11-17] MEDS ORDERED: ZINC SULFATE 220 MG CAPSULE (FP) PO SCH (10:00)
[2021-11-17] MEDS ORDERED: CHOLECALCIFEROL (VIT D3) 1,000 UNIT (25 MCG) TABLET PO SCH (10:00)
[2021-11-17] MEDS ORDERED: AZITHROMYCIN IVPB 250 MG in DEXTROSE 5%-WATER - 250 ML IVPB SCH (10:00)
[2021-11-17] MEDS ORDERED: CEFTRIAXONE 1 GM in DEXTROSE 5%-WATER - 50 ML IVPB SCH (10:00)
[2021-11-17 10:43] LABS: BASO % 0.8 % (0-2.0); EOS % 0.3 % (0-4.5); HEMATOCRIT 39.1 % (32.4-45.2); HEMOGLOBIN 12.6 GM/dL (10.7-15.3); LYMPH % 38.7 % (8-40); MCH 29.2 pg (25.7-33.7); MCHC 32.1 g/dl (32.0-36.0); MEAN CELL VOLUME 90.9 fl (80-96); MEAN PLT VOLUME 8.7 fl (7.5-11.1); MONO % 8.4 % (3.8-10.2); NEUT % 51.8 % (42.8-82.8); PLATELET COUNT 193 10^3/uL (134-434); RBC 4.31 M/mm3 (3.60-5.2); RDW 12.3 % (11.6-15.6); WHITE BLOOD COUNT 3.8 K/mm3 (4.0-10.0)
[2021-11-17 11:12] LABS: BLOOD UREA NITROGEN 13.7 mg/dL (7-18); MAGNESIUM 2.2 mg/dL (1.8-2.4)
[2021-11-17 11:15] LABS: CREATININE 0.7 mg/dL (0.55-1.3); PHOSPHOROUS 2.8 mg/dL (2.5-4.9)
[2021-11-17] MEDS ORDERED: DEXTROSE 5%-WATER - 50 ML IVPB ONE (11:20)
[2021-11-17] MEDS ORDERED: cefTRIAXone SODIUM 1 GM VIAL ONE (11:20)
[2021-11-17] MEDS: MEMANTINE HCL 5 MG TABLET (UD) PO SCH (13:05)
[2021-11-17 15:30] VITALS: BP 145/55; PULSE 73; TEMP 99.4
== END 2021-11-17 17:03 | disposition home or self-care (01) | DRG 177 ==
LOC: JER 20:40 → JERBED 21:40 → J4W 11-16 02:55 → J5S 11-16 18:29
PROVIDERS: ADMIT Hospitalist; ATTEND Internal Medicine
DX: U07.1 COVID-19 (principal); J12.82 Pneumonia due to coronavirus disease 2019; I10 Essential (primary) hypertension; R55 Syncope and collapse; F03.90 Unspecified dementia, unspecified severity, without behavioral disturbance, psychotic disturbance, mood disturbance, and anxiety; E04.1 Nontoxic single thyroid nodule; I65.23 Occlusion and stenosis of bilateral carotid arteries; D64.9 Anemia, unspecified; E78.5 Hyperlipidemia, unspecified; N28.1 Cyst of kidney, acquired; R26.81 Unsteadiness on feet; W18.30XA Fall on same level, unspecified, initial encounter; Y92.091 Bathroom in other non-institutional residence as the place of occurrence of the external cause
CPT/HCPCS: 36415; 70450-TC; 71045-TC-FY; 71250-TC; 72125-TC; 76700-TC; 80048; 80053; 81003; 82550; 82728; 83615; 83735; 83880; 84100; 84439; 84443; 84481; 84484; 85025; 85027; 85379; 85384; 85610; 85730; 86140; 87086; 87804; 93005; 93010; 93880-TC; 97116-GP; 97162-GP; 99285-25; C9803; U0003; U0005

== ENCOUNTER 2022-04-27 11:37 | Emergency (ER) | payer OTHER ==
[2022-04-27 12:08] VITALS: BP 161/94; PULSE 77; TEMP 98.6; BMI 27.1
[2022-04-27] MEDS ORDERED: ACETAMINOPHEN 500 MG TABLET (FP) PO ONE (12:45)
[2022-04-27] MEDS ORDERED: ACETAMINOPHEN 500 MG TABLET (FP) ONE (12:46)
== END 2022-04-27 12:51 | disposition home or self-care (01) ==
LOC: JERFT 11:37 → JER 11:37 → JERFT 12:51
DX: K08.89 Other specified disorders of teeth and supporting structures (principal)
CPT/HCPCS: 99283-25

== ENCOUNTER 2022-10-21 11:14 | Inpatient (IN) | payer OTHER ==
[2022-10-21 11:59] VITALS: BMI 32.9
[2022-10-21 13:46] LABS: BASO % 0.5 % (0-2.0); HEMOGLOBIN 13.1 GM/dL (10.7-15.3); LYMPH % 7.3 % (8-40); MCH 29.7 pg (25.7-33.7); MCHC 32.6 g/dl (32.0-36.0); MEAN PLT VOLUME 7.7 fl (7.5-11.1); MONO % 5.7 % (3.8-10.2); NEUT % 86.5 % (42.8-82.8); PLATELET COUNT 202 10^3/uL (134-434); RDW 13.1 % (11.6-15.6); WHITE BLOOD COUNT 5.8 K/mm3 (4.0-10.0)
[2022-10-21 14:14] LABS: ALBUMIN 3.6 g/dl (3.4-5.0); BLOOD UREA NITROGEN 21.2 mg/dL (7-18); CALCIUM 9.6 mg/dL (8.5-10.1)
[2022-10-21 14:17] LABS: CREATININE 1.4 mg/dL (0.55-1.3)
[2022-10-21 14:19] LABS: BILIRUBIN,TOTAL 0.3 mg/dL (0.2-1); TOT PROT 7.2 g/dl (6.4-8.2)
[2022-10-21] MEDS ORDERED: SODIUM CHLORIDE 1,000 ML IV SCH ×2 (17:30)
[2022-10-21] MEDS ORDERED: HEPARIN NA (PORCINE) 5,000 UNITS/ML 1ML VIAL ONE (23:04)
[2022-10-21] MEDS: HEPARIN NA (PORCINE) 5,000 UNITS/ML 1ML VIAL SQ SCH (23:12)
[2022-10-22] MEDS: MEMANTINE HCL 5 MG TABLET (UD) PO SCH ×3 (00:31→21:04)
[2022-10-22] MEDS ORDERED: OSELTAMIVIR PHOSPHATE 75 MG CAPSULE PO SCH (10:45)
[2022-10-22] MEDS: HEPARIN NA (PORCINE) 5,000 UNITS/ML 1ML VIAL SQ SCH ×2 (11:04→21:04)
[2022-10-22] MEDS: levETIRAcetam 500 MG TABLET (FP) PO SCH ×2 (11:04→21:04)
[2022-10-22] MEDS: OSELTAMIVIR PHOSPHATE 30 MG CAPSULE PO SCH ×2 (12:12→21:04)
[2022-10-22] MEDS ORDERED: amLODIPine BESYLATE 10 MG TABLET (FP) PO SCH (12:25)
[2022-10-22 13:44] LABS: EPI CELLS 24 /uL (0-25.1); HYALINE CASTS 4 /uL (0-3.1); PH,URINE 5.5 (5.0-8.0); URINE APPEARANCE CLEAR; URINE BACTERIA 398 /uL (0-1359); URINE BILIRUBIN NEGATIVE (NEGATIVE); URINE COLOR YELLOW; URINE GLUCOSE (UA) NEGATIVE (NEGATIVE); URINE KETONE NEGATIVE (NEGATIVE); URINE LEUK ESTERASE 1+ (NEGATIVE); URINE NITRITE NEGATIVE (NEGATIVE); URINE PROTEIN 1+ (NEGATIVE); URINE RBC 11 /uL (0-23.9); URINE UROBILINOGEN 0.2 mg/dL (0.2-1.0); URINE WBC 79 /uL (0-25.8)
[2022-10-22 16:11] LABS: HEMATOCRIT 34.4 % (32.4-45.2); HEMOGLOBIN 11.4 GM/dL (10.7-15.3); MCH 30.1 pg (25.7-33.7); MCHC 33.1 g/dl (32.0-36.0); MEAN CELL VOLUME 90.8 fl (80-96); MEAN PLT VOLUME 7.9 fl (7.5-11.1); PLATELET COUNT 165 10^3/uL (134-434); RBC 3.79 M/mm3 (3.60-5.2); RDW 13.7 % (11.6-15.6); WHITE BLOOD COUNT 4.2 K/mm3 (4.0-10.0)
[2022-10-22 16:53] LABS: ALBUMIN 3.1 g/dl (3.4-5.0); CALCIUM 8.6 mg/dL (8.5-10.1)
[2022-10-22 16:54] LABS: BLOOD UREA NITROGEN 35.6 mg/dL (7-18)
[2022-10-22 16:56] LABS: CREATININE 2.6 mg/dL (0.55-1.3)
[2022-10-22 16:57] LABS: PHOSPHOROUS 3.8 mg/dL (2.5-4.9)
[2022-10-22 16:58] LABS: BILIRUBIN,TOTAL 0.4 mg/dL (0.2-1)
[2022-10-22] MEDS ORDERED: POTASSIUM PHOSPHATE 30 MM in DEXTROSE 5%-WATER - 500 ML IVPB ONE (16:58)
[2022-10-22] MEDS: LACTATED RINGERS SOLUTION 1,000 ML/1,000 ML INFUS.BAG IV SCH (17:28)
[2022-10-22] MEDS: KCL 10 MEQ IVPB 10 MEQ/100 ML INFUS.BAG IVPB SCH ×3 (17:30→20:34)
[2022-10-23] MEDS: LACTATED RINGERS SOLUTION 1,000 ML/1,000 ML INFUS.BAG IV SCH (05:55)
[2022-10-23] MEDS ORDERED: PATIENT'S OWN MEDICATION (NON-FORMULARY) (Losartan Potassium [Losartan Potassium] 100 MG T PO SCH (10:00)
[2022-10-23] MEDS ORDERED: LOSARTAN POTASSIUM 50 MG TABLET PO SCH (10:00)
[2022-10-23] MEDS ORDERED: amLODIPine BESYLATE 10 MG TABLET (FP) PO SCH (10:00)
[2022-10-23 10:11] LABS: HEMATOCRIT 35.8 % (32.4-45.2); HEMOGLOBIN 11.7 GM/dL (10.7-15.3); MCH 29.5 pg (25.7-33.7); MCHC 32.7 g/dl (32.0-36.0); MEAN CELL VOLUME 90.1 fl (80-96); PLATELET COUNT 159 10^3/uL (134-434); RBC 3.97 M/mm3 (3.60-5.2); RDW 13.1 % (11.6-15.6); WHITE BLOOD COUNT 4.1 K/mm3 (4.0-10.0)
[2022-10-23 10:36] LABS: CALCIUM 8.6 mg/dL (8.5-10.1)
[2022-10-23 10:37] LABS: BLOOD UREA NITROGEN 36.2 mg/dL (7-18); MAGNESIUM 2.1 mg/dL (1.8-2.4)
[2022-10-23 10:39] LABS: PHOSPHOROUS 3.3 mg/dL (2.5-4.9)
[2022-10-23 10:40] LABS: CREATININE 2.1 mg/dL (0.55-1.3)
[2022-10-23 10:41] LABS: BILIRUBIN,TOTAL 0.6 mg/dL (0.2-1)
[2022-10-23] MEDS: OSELTAMIVIR PHOSPHATE 30 MG CAPSULE PO SCH ×2 (11:04→21:30)
[2022-10-23] MEDS: amLODIPine BESYLATE 10 MG TABLET (FP) PO SCH (11:04)
[2022-10-23] MEDS: HEPARIN NA (PORCINE) 5,000 UNITS/ML 1ML VIAL SQ SCH ×2 (11:04→21:30)
[2022-10-23] MEDS: MEMANTINE HCL 5 MG TABLET (UD) PO SCH ×2 (11:04→21:30)
[2022-10-23] MEDS: levETIRAcetam 500 MG TABLET (FP) PO SCH ×2 (11:04→21:30)
[2022-10-23] MEDS: KCL 10 MEQ IVPB 10 MEQ/100 ML INFUS.BAG IVPB SCH ×2 (12:15→14:45)
[2022-10-23] MEDS: SODIUM CHLORIDE 0.45%/POT 20 MEQ/1,000 ML INFUS.BAG IV SCH (12:15)
[2022-10-23] MEDS: ATORVASTATIN CA 20 MG TABLET (FP) PO SCH (21:30)
[2022-10-24] MEDS: SODIUM CHLORIDE 0.45%/POT 20 MEQ/1,000 ML INFUS.BAG IV SCH ×2 (06:26→10:08)
[2022-10-24 09:22] LABS: HEMATOCRIT 32.4 % (32.4-45.2); MCH 30.7 pg (25.7-33.7); MCHC 33.9 g/dl (32.0-36.0); MEAN CELL VOLUME 90.7 fl (80-96); MEAN PLT VOLUME 8.1 fl (7.5-11.1); PLATELET COUNT 157 10^3/uL (134-434); RBC 3.58 M/mm3 (3.60-5.2); RDW 13.1 % (11.6-15.6); WHITE BLOOD COUNT 3.6 K/mm3 (4.0-10.0)
[2022-10-24 09:48] LABS: CALCIUM 8.9 mg/dL (8.5-10.1)
[2022-10-24 09:49] LABS: BLOOD UREA NITROGEN 31.8 mg/dL (7-18); MAGNESIUM 1.9 mg/dL (1.8-2.4)
[2022-10-24 09:52] LABS: CREATININE 1.4 mg/dL (0.55-1.3); PHOSPHOROUS 2.5 mg/dL (2.5-4.9)
[2022-10-24] MEDS: HEPARIN NA (PORCINE) 5,000 UNITS/ML 1ML VIAL SQ SCH ×2 (10:09→21:01)
[2022-10-24] MEDS: levETIRAcetam 500 MG TABLET (FP) PO SCH ×2 (10:10→21:01)
[2022-10-24] MEDS: OSELTAMIVIR PHOSPHATE 30 MG CAPSULE PO SCH ×2 (10:10→21:01)
[2022-10-24] MEDS: MEMANTINE HCL 5 MG TABLET (UD) PO SCH ×2 (10:10→21:01)
[2022-10-24] MEDS: amLODIPine BESYLATE 10 MG TABLET (FP) PO SCH (10:10)
[2022-10-24] MEDS: LACTATED RINGERS SOLUTION 1,000 ML/1,000 ML INFUS.BAG IV SCH (10:11)
[2022-10-24] MEDS: SODIUM CHLORIDE 0.45% 1,000 ML IV SCH (20:40)
[2022-10-24] MEDS: ATORVASTATIN CA 20 MG TABLET (FP) PO SCH (21:00)
[2022-10-25] MEDS: HEPARIN NA (PORCINE) 5,000 UNITS/ML 1ML VIAL SQ SCH ×3 (06:05→21:19)
[2022-10-25] MEDS: SODIUM CHLORIDE 0.45% 1,000 ML IV SCH ×2 (06:06→19:30)
[2022-10-25] MEDS: OSELTAMIVIR PHOSPHATE 30 MG CAPSULE PO SCH ×2 (09:39→21:19)
[2022-10-25] MEDS: levETIRAcetam 500 MG TABLET (FP) PO SCH ×2 (09:39→21:19)
[2022-10-25] MEDS: amLODIPine BESYLATE 10 MG TABLET (FP) PO SCH (09:39)
[2022-10-25] MEDS: MEMANTINE HCL 5 MG TABLET (UD) PO SCH ×2 (09:39→21:19)
[2022-10-25 10:11] LABS: HEMATOCRIT 34.9 % (32.4-45.2); HEMOGLOBIN 11.4 GM/dL (10.7-15.3); MCH 29.5 pg (25.7-33.7); MCHC 32.7 g/dl (32.0-36.0); MEAN PLT VOLUME 8.2 fl (7.5-11.1); PLATELET COUNT 169 10^3/uL (134-434); RBC 3.88 M/mm3 (3.60-5.2); RDW 12.6 % (11.6-15.6); WHITE BLOOD COUNT 3.9 K/mm3 (4.0-10.0)
[2022-10-25 10:38] LABS: ALBUMIN 2.9 g/dl (3.4-5.0); BLOOD UREA NITROGEN 18.3 mg/dL (7-18); CALCIUM 8.7 mg/dL (8.5-10.1); MAGNESIUM 1.6 mg/dL (1.8-2.4)
[2022-10-25 10:42] LABS: PHOSPHOROUS 2.4 mg/dL (2.5-4.9); TOT PROT 5.8 g/dl (6.4-8.2)
[2022-10-25 10:43] LABS: BILIRUBIN,TOTAL 0.4 mg/dL (0.2-1)
[2022-10-25] MEDS ORDERED: MAGNESIUM SULF 50% (8.12 MEQ/2 ML-1 GM VIAL) IVPB ONE ×2 (11:08→14:18)
[2022-10-25] MEDS ORDERED: SODIUM PHOSPHATE - 20 MM in DEXTROSE 5%-WATER - 250 ML IVPB ONE (12:00)
[2022-10-25] MEDS ORDERED: POTASSIUM PHOSPHATE 30 MM in DEXTROSE 5%-WATER - 500 ML IVPB ONE (15:30)
[2022-10-25] MEDS: ATORVASTATIN CA 20 MG TABLET (FP) PO SCH (21:19)
[2022-10-26] MEDS: HEPARIN NA (PORCINE) 5,000 UNITS/ML 1ML VIAL SQ SCH ×3 (06:27→21:09)
[2022-10-26 09:53] LABS: HEMATOCRIT 34.3 % (32.4-45.2); HEMOGLOBIN 11.2 GM/dL (10.7-15.3); MCH 29.6 pg (25.7-33.7); MCHC 32.7 g/dl (32.0-36.0); MEAN CELL VOLUME 90.4 fl (80-96); MEAN PLT VOLUME 8.3 fl (7.5-11.1); PLATELET COUNT 183 10^3/uL (134-434); RDW 12.9 % (11.6-15.6); WHITE BLOOD COUNT 4.8 K/mm3 (4.0-10.0)
[2022-10-26] MEDS: OSELTAMIVIR PHOSPHATE 30 MG CAPSULE PO SCH ×2 (10:16→21:09)
[2022-10-26] MEDS: levETIRAcetam 500 MG TABLET (FP) PO SCH ×2 (10:16→21:09)
[2022-10-26] MEDS: amLODIPine BESYLATE 10 MG TABLET (FP) PO SCH (10:16)
[2022-10-26] MEDS: MEMANTINE HCL 5 MG TABLET (UD) PO SCH ×2 (10:16→21:09)
[2022-10-26 10:20] LABS: BLOOD UREA NITROGEN 15.5 mg/dL (7-18); CALCIUM 8.8 mg/dL (8.5-10.1)
[2022-10-26 10:22] LABS: PHOSPHOROUS 2.8 mg/dL (2.5-4.9)
[2022-10-26] MEDS: ATORVASTATIN CA 20 MG TABLET (FP) PO SCH (21:09)
[2022-10-27] MEDS: HEPARIN NA (PORCINE) 5,000 UNITS/ML 1ML VIAL SQ SCH ×2 (06:23→15:21)
[2022-10-27 09:21] LABS: HEMATOCRIT 35.3 % (32.4-45.2); HEMOGLOBIN 11.1 GM/dL (10.7-15.3); MCH 28.5 pg (25.7-33.7); MCHC 31.6 g/dl (32.0-36.0); MEAN CELL VOLUME 90.3 fl (80-96); MEAN PLT VOLUME 8.3 fl (7.5-11.1); PLATELET COUNT 188 10^3/uL (134-434); WHITE BLOOD COUNT 4.5 K/mm3 (4.0-10.0)
[2022-10-27 09:47] LABS: CALCIUM 9.2 mg/dL (8.5-10.1)
[2022-10-27 09:48] LABS: BLOOD UREA NITROGEN 17.3 mg/dL (7-18); MAGNESIUM 2.1 mg/dL (1.8-2.4)
[2022-10-27 09:51] LABS: CREATININE 0.9 mg/dL (0.55-1.3); PHOSPHOROUS 2.6 mg/dL (2.5-4.9)
[2022-10-27 10:19] VITALS: RESP 18
[2022-10-27] MEDS: levETIRAcetam 500 MG TABLET (FP) PO SCH (10:38)
[2022-10-27] MEDS: MEMANTINE HCL 5 MG TABLET (UD) PO SCH (10:38)
[2022-10-27] MEDS: amLODIPine BESYLATE 10 MG TABLET (FP) PO SCH (10:38)
[2022-10-27] MEDS: OSELTAMIVIR PHOSPHATE 30 MG CAPSULE PO SCH (10:38)
[2022-10-27] MEDS: SODIUM CHLORIDE 0.45% 1,000 ML IV SCH (10:39)
[2022-10-27 15:18] VITALS: BP 135/69; PULSE 59; TEMP 97.8
== END 2022-10-27 18:23 | disposition home health service (06) | DRG 312 ==
LOC: JER 11:14 → JERBED 17:00 → J4S 23:53 → OBSVTOIN 10-23 08:06 → J4W 10-26 19:25 → J4S 10-26 20:10
PROVIDERS: ADMIT Internal Medicine; ATTEND Internal Medicine
DX: R55 Syncope and collapse (principal); G93.41 Metabolic encephalopathy; N17.9 Acute kidney failure, unspecified; R56.9 Unspecified convulsions; J10.1 Influenza due to other identified influenza virus with other respiratory manifestations; F03.90 Unspecified dementia, unspecified severity, without behavioral disturbance, psychotic disturbance, mood disturbance, and anxiety; I10 Essential (primary) hypertension; E78.5 Hyperlipidemia, unspecified; R80.9 Proteinuria, unspecified; E87.6 Hypokalemia; E86.0 Dehydration
CPT/HCPCS: 0241U-QW; 36415; 70450-TC; 70553-TC; 71045-TC-FY; 76775-TC; 80048; 80053; 81003; 82550; 82570; 82962; 83605; 83735; 84100; 84156; 84300; 84484; 85025; 85027; 87086; 93005; 93010; 93880-TC; 97116-GP; 97161-GP; 99285-25; G0378; J1644; J3480

== ENCOUNTER 2023-08-01 21:38 | Observation (INO) | payer OTHER ==
[2023-08-01 23:34] LABS: BASO % 0.7 % (0-2.0); EOS % 0.6 % (0-4.5); HEMATOCRIT 36.7 % (32.4-45.2); HEMOGLOBIN 12.4 GM/dL (10.7-15.3); LYMPH % 28.4 % (8-40); MCH 29.5 pg (25.7-33.7); MCHC 33.8 g/dl (32.0-36.0); MEAN CELL VOLUME 87.3 fl (80-96); MEAN PLT VOLUME 7.7 fl (7.5-11.1); MONO % 6.5 % (3.8-10.2); NEUT % 63.8 % (42.8-82.8); PLATELET COUNT 219 10^3/uL (134-434); RDW 13.3 % (11.6-15.6); WHITE BLOOD COUNT 6.7 K/mm3 (4.0-10.0)
[2023-08-01] MEDS ORDERED: SODIUM CHLORIDE 0.9% 500 ML INFUS.BAG IV ONE (23:36)
[2023-08-01 23:45] LABS: INR 0.99 (0.83-1.09); PROTHROMBIN TIME (PATIENT) 11.5 SEC (9.7-13.0)
[2023-08-01 23:47] LABS: ACTIVATED PTT 28.9 SECONDS (25.2-36.5)
[2023-08-01 23:52] LABS: POTASSIUM 3.6 mmol/L (3.5-5.1)
[2023-08-01 23:54] LABS: CALCIUM 9.7 mg/dL (8.5-10.1)
[2023-08-01 23:55] LABS: ALBUMIN 3.6 g/dl (3.4-5.0); BLOOD UREA NITROGEN 29.3 mg/dL (7-18)
[2023-08-01 23:58] LABS: CREATININE 1.6 mg/dL (0.55-1.3)
[2023-08-02] LABS: BILIRUBIN,TOTAL 0.1 mg/dL (0.2-1); TOT PROT 6.9 g/dl (6.4-8.2)
[2023-08-02] MEDS ORDERED: SODIUM CHLORIDE 0.9% 500 ML INFUS.BAG IV ONE (03:19)
[2023-08-02] MEDS: SODIUM CHLORIDE 1,000 ML IV SCH (04:22)
[2023-08-02 05:37] LABS: EPI CELLS >36 /uL (0-25.1); HYALINE CASTS 1 /uL (0-3.1); URINE APPEARANCE CLEAR; URINE BACTERIA 419 /uL (0-1359); URINE BILIRUBIN NEGATIVE (NEGATIVE); URINE COLOR YELLOW; URINE GLUCOSE (UA) NEGATIVE (NEGATIVE); URINE KETONE NEGATIVE (NEGATIVE); URINE LEUK ESTERASE 1+ (NEGATIVE); URINE NITRITE NEGATIVE (NEGATIVE); URINE PROTEIN NEGATIVE (NEGATIVE); URINE RBC 21 /uL (0-23.9); URINE UROBILINOGEN 0.2 mg/dL (0.2-1.0); URINE WBC 46 /uL (0-25.8)
[2023-08-02] MEDS ORDERED: CEFTRIAXONE 1 GM/50 ML BAG ONE (06:57)
[2023-08-02] MEDS ORDERED: CEFTRIAXONE 1 GM in DEXTROSE 5%-WATER - 50 ML IVPB ONE (07:00)
[2023-08-02] MEDS ORDERED: levETIRAcetam 500 MG TABLET (FP) PO ONE (09:17)
[2023-08-02] MEDS ORDERED: ATORVASTATIN CA 20 MG TABLET (FP) ONE (09:17)
[2023-08-02] MEDS: levETIRAcetam 500 MG TABLET (FP) PO SCH ×2 (09:31→21:39)
[2023-08-02] MEDS: MEMANTINE HCL 5 MG TABLET (UD) PO SCH ×2 (09:31→21:39)
[2023-08-02 12:48] LABS: BASO % 1.1 % (0-2.0); EOS % 0.6 % (0-4.5); HEMATOCRIT 36.5 % (32.4-45.2); HEMOGLOBIN 11.8 GM/dL (10.7-15.3); LYMPH % 47.1 % (8-40); MCH 28.9 pg (25.7-33.7); MCHC 32.2 g/dl (32.0-36.0); MEAN CELL VOLUME 89.5 fl (80-96); MEAN PLT VOLUME 9.1 fl (7.5-11.1); MONO % 7.3 % (3.8-10.2); NEUT % 43.9 % (42.8-82.8); PLATELET COUNT 183 10^3/uL (134-434); RBC 4.07 M/mm3 (3.60-5.2); WHITE BLOOD COUNT 6.5 K/mm3 (4.0-10.0)
[2023-08-02] MEDS: ATORVASTATIN CA 20 MG TABLET (FP) PO SCH (21:39)
[2023-08-03] MEDS ORDERED: CEFTRIAXONE 1 GM in DEXTROSE 5%-WATER - 50 ML IVPB SCH (10:00)
[2023-08-03] MEDS: LOSARTAN POTASSIUM 50 MG TABLET PO SCH (10:19)
[2023-08-03] MEDS: levETIRAcetam 500 MG TABLET (FP) PO SCH ×2 (10:20→21:05)
[2023-08-03] MEDS: MEMANTINE HCL 5 MG TABLET (UD) PO SCH ×3 (11:24→21:05)
[2023-08-03 13:04] LABS: POTASSIUM 3.8 mmol/L (3.5-5.1)
[2023-08-03 13:05] LABS: CALCIUM 9.7 mg/dL (8.5-10.1)
[2023-08-03 13:06] LABS: ALBUMIN 3.6 g/dl (3.4-5.0); BLOOD UREA NITROGEN 30.6 mg/dL (7-18)
[2023-08-03 13:09] LABS: CREATININE 1.1 mg/dL (0.55-1.3)
[2023-08-03 13:11] LABS: BILIRUBIN,TOTAL 0.3 mg/dL (0.2-1); TOT PROT 6.9 g/dl (6.4-8.2)
[2023-08-03] MEDS: SODIUM CHLORIDE 1,000 ML IV SCH (13:19)
[2023-08-03] MEDS: ATORVASTATIN CA 20 MG TABLET (FP) PO SCH (21:05)
[2023-08-04 01:30] LABS: MAGNESIUM 2.2 mg/dL (1.8-2.4)
[2023-08-04 01:38] LABS: N-TERMINAL BNP 307.7 pg/ml (5-450)
[2023-08-04] MEDS: MEMANTINE HCL 5 MG TABLET (UD) PO SCH (09:18)
[2023-08-04] MEDS: levETIRAcetam 500 MG TABLET (FP) PO SCH (09:18)
[2023-08-04] MEDS: LOSARTAN POTASSIUM 50 MG TABLET PO SCH (09:18)
[2023-08-04 09:21] VITALS: RESP 20
[2023-08-04 14:48] VITALS: BP 129/67; PULSE 85; TEMP 98.6
[2023-08-04 18:45] VITALS: BMI 15.0
== END 2023-08-04 16:50 | disposition home or self-care (01) ==
LOC: JER 21:38 → JERBED 23:59 → J4W 08-02 15:29
PROVIDERS: ADMIT Internal Medicine; ATTEND Family Medicine
PROC: 3E03329 Introduction of Other Anti-infective into Peripheral Vein, Percutaneous Approach (ICD-10-PCS; principal; 2023-08-01)
PROC: 3E0337Z Introduction of Electrolytic and Water Balance Substance into Peripheral Vein, Percutaneous Approach (ICD-10-PCS; 2023-08-01)
DX: N17.9 Acute kidney failure, unspecified (principal); R55 Syncope and collapse; G40.909 Epilepsy, unspecified, not intractable, without status epilepticus; F02.80 Dementia in other diseases classified elsewhere, unspecified severity, without behavioral disturbance, psychotic disturbance, mood disturbance, and anxiety; G30.1 Alzheimer's disease with late onset; I10 Essential (primary) hypertension; E78.5 Hyperlipidemia, unspecified; D64.9 Anemia, unspecified; Z87.891 Personal history of nicotine dependence; R80.9 Proteinuria, unspecified; Z91.018 Allergy to other foods; R26.81 Unsteadiness on feet
CPT/HCPCS: 0241U-QW; 36415; 70450-TC; 71045-TC-FY; 80053; 80177; 81003; 83735; 83880; 84484; 85025; 85610; 85730; 87086; 93005; 93010; 93306-TC; 96361; 96365; 97116-GP; 97161-GP; 99291; G0378

== ENCOUNTER 2023-12-21 20:00 | Emergency (ER) | payer OTHER ==
[2023-12-21 20:30] VITALS: RESP 18; BMI 29.2
[2023-12-21 21:40] LABS: VENOUS O2 SATURATION 38.6 % (70-80); VENOUS PCO2 42.5 mmHg (38-52); VENOUS PH 7.403 (7.310-7.410)
[2023-12-21 21:48] LABS: BASO % 0.8 % (0-2.0); EOS % 0.8 % (0-4.5); HEMATOCRIT 38.7 % (32.4-45.2); HEMOGLOBIN 12.9 GM/dL (10.7-15.3); LYMPH % 36.9 % (8-40); MCH 29.4 pg (25.7-33.7); MCHC 33.4 g/dl (32.0-36.0); MEAN CELL VOLUME 88.1 fl (80-96); MEAN PLT VOLUME 9.1 fl (7.5-11.1); MONO % 4.8 % (3.8-10.2); NEUT % 56.7 % (42.8-82.8); PLATELET COUNT 185 10^3/uL (134-434); RDW 13.2 % (11.6-15.6); WHITE BLOOD COUNT 6.3 K/mm3 (4.0-10.0)
[2023-12-21 21:55] LABS: INR 1.03 (0.83-1.09); PROTHROMBIN TIME (PATIENT) 11.9 SEC (9.7-13.0)
[2023-12-21 21:58] LABS: ACTIVATED PTT 25.1 SECONDS (25.2-36.5)
[2023-12-21 22:00] LABS: POTASSIUM 3.3 mmol/L (3.5-5.1)
[2023-12-21 22:02] LABS: CALCIUM 10.4 mg/dL (8.5-10.1)
[2023-12-21 22:03] LABS: ALBUMIN 3.8 g/dl (3.4-5.0); BLOOD UREA NITROGEN 24.4 mg/dL (7-18); MAGNESIUM 2.2 mg/dL (1.8-2.4)
[2023-12-21 22:06] LABS: CREATININE 1.8 mg/dL (0.55-1.3); PHOSPHOROUS 2.6 mg/dL (2.5-4.9)
[2023-12-21 22:07] LABS: TOT PROT 7.1 g/dl (6.4-8.2)
[2023-12-21 22:08] LABS: BILIRUBIN,TOTAL 0.5 mg/dL (0.2-1)
[2023-12-21] MEDS: MAGNESIUM SULF 50% (8.12 MEQ/2 ML-1 GM VIAL) IVPB ONE (22:09)
[2023-12-21 22:11] LABS: N-TERMINAL BNP 111.9 pg/ml (5-450)
[2023-12-21] MEDS: SODIUM CHLORIDE 0.9% 500 ML INFUS.BAG IV ONE (22:17)
[2023-12-21] MEDS: POTASSIUM CHLORIDE ORAL LIQUID 20 MEQ/15 ML PO ONE (22:17)
[2023-12-21 23:09] VITALS: BP 120/80; PULSE 68; TEMP 98.3
[2023-12-21 23:37] LABS: PH,URINE 5.5 (5.0-8.0); URINE APPEARANCE CLEAR; URINE BILIRUBIN NEGATIVE (NEGATIVE); URINE COLOR YELLOW; URINE GLUCOSE (UA) NEGATIVE (NEGATIVE); URINE KETONE NEGATIVE (NEGATIVE); URINE LEUK ESTERASE NEGATIVE (NEGATIVE); URINE NITRITE NEGATIVE (NEGATIVE); URINE PROTEIN NEGATIVE (NEGATIVE)
== END 2023-12-22 00:50 | disposition home or self-care (01) ==
LOC: JER 20:00
DX: N17.9 Acute kidney failure, unspecified (principal); E86.0 Dehydration; R41.82 Altered mental status, unspecified; R06.02 Shortness of breath; R10.13 Epigastric pain; E87.6 Hypokalemia; Z20.822 Contact with and (suspected) exposure to COVID-19
CPT/HCPCS: 0241U-QW; 36415; 71045-TC-FY; 80053; 81003; 82803; 83690; 83735; 83880; 84100; 84484; 85025; 85610; 85730; 86850; 86900; 86901; 87086; 93005; 93010; 99285-25

== ENCOUNTER 2024-04-07 12:43 | Observation (INO) | payer OTHER ==
[2024-04-07 14:19] LABS: BASO % 1.1 % (0-2.0); EOS % 0.5 % (0-4.5); HEMATOCRIT 35.2 % (32.4-45.2); HEMOGLOBIN 11.8 GM/dL (10.7-15.3); LYMPH % 24.6 % (8-40); MCH 30.1 pg (25.7-33.7); MCHC 33.5 g/dl (32.0-36.0); MEAN CELL VOLUME 89.8 fl (80-96); MEAN PLT VOLUME 8.7 fl (7.5-11.1); MONO % 6.4 % (3.8-10.2); NEUT % 67.4 % (42.8-82.8); PLATELET COUNT 224 10^3/uL (134-434); RBC 3.92 M/mm3 (3.60-5.2); RDW 13.6 % (11.6-15.6); WHITE BLOOD COUNT 6.9 K/mm3 (4.0-10.0)
[2024-04-07 14:46] LABS: CALCIUM 10.4 mg/dL (8.5-10.1)
[2024-04-07 14:47] LABS: ALBUMIN 3.5 g/dl (3.4-5.0); BLOOD UREA NITROGEN 22.2 mg/dL (7-18); MAGNESIUM 2.3 mg/dL (1.8-2.4)
[2024-04-07 14:50] LABS: CREATININE 1.4 mg/dL (0.55-1.3)
[2024-04-07 14:51] LABS: BILIRUBIN,TOTAL 0.6 mg/dL (0.2-1); TOT PROT 7.2 g/dl (6.4-8.2)
[2024-04-07 16:32] LABS: EPI CELLS 24 /uL (0-25.1); HYALINE CASTS 3 /uL (0-3.1); PH,URINE 5.5 (5.0-8.0); URINE APPEARANCE CLEAR; URINE BACTERIA 0 /uL (0-1359); URINE BILIRUBIN NEGATIVE (NEGATIVE); URINE COLOR YELLOW; URINE GLUCOSE (UA) NEGATIVE (NEGATIVE); URINE KETONE TRACE (NEGATIVE); URINE LEUK ESTERASE TRACE (NEGATIVE); URINE NITRITE NEGATIVE (NEGATIVE); URINE PROTEIN TRACE (NEGATIVE); URINE RBC 19 /uL (0-23.9); URINE WBC 94 /uL (0-25.8)
[2024-04-07] MEDS ORDERED: amLODIPine BESYLATE 5 MG TABLET (FP) ONE (17:02)
[2024-04-07] MEDS ORDERED: LOSARTAN POTASSIUM 50 MG TABLET ONE (17:02)
[2024-04-07] MEDS ORDERED: levETIRAcetam 500 MG TABLET (FP) PO ONE (17:02)
[2024-04-07] MEDS: amLODIPine BESYLATE 5 MG TABLET (FP) PO ONE (17:40)
[2024-04-07] MEDS: LOSARTAN POTASSIUM 50 MG TABLET PO ONE (17:40)
[2024-04-07] MEDS: levETIRAcetam 500 MG TABLET (FP) PO ONE (17:40)
[2024-04-07] MEDS: levETIRAcetam 500 MG TABLET (FP) PO SCH (21:06)
[2024-04-07] MEDS: HEPARIN NA (PORCINE) 5,000 UNITS/ML 1ML VIAL SQ SCH (21:06)
[2024-04-07] MEDS: ATORVASTATIN CA 20 MG TABLET (FP) PO SCH (21:06)
[2024-04-08 08:33] LABS: POTASSIUM 3.4 mmol/L (3.5-5.1)
[2024-04-08 08:35] LABS: CALCIUM 9.5 mg/dL (8.5-10.1)
[2024-04-08 08:36] LABS: BLOOD UREA NITROGEN 16.2 mg/dL (7-18)
[2024-04-08 08:39] LABS: CREATININE 0.9 mg/dL (0.55-1.3)
[2024-04-08] MEDS ORDERED: LOSARTAN POTASSIUM 50 MG TABLET PO SCH (10:00)
[2024-04-08] MEDS: amLODIPine BESYLATE 5 MG TABLET (FP) PO SCH (10:06)
[2024-04-08] MEDS: LOSARTAN POTASSIUM 50 MG TABLET PO SCH (11:16)
[2024-04-08] MEDS: LOSARTAN POTASSIUM 50 MG TABLET PO ONE (15:58)
[2024-04-08] MEDS: HYDROCHLOROTHIAZIDE 25 MG TABLET (FP) PO SCH (15:58)
[2024-04-08] MEDS: POTASSIUM CHLORIDE ORAL LIQUID 20 MEQ/15 ML PO ONE (16:11)
[2024-04-09 08:31] LABS: CHOLESTEROL 118 mg/dL (50-200)
[2024-04-09 08:32] LABS: LDL CHOLESTEROL (ONLY SJRH) 62 mg/dL (5-100)
[2024-04-09 08:34] LABS: HDL CHOLESTEROL 45 mg/dL (40-60)
[2024-04-09] MEDS: LOSARTAN POTASSIUM 50 MG TABLET PO SCH (10:10)
[2024-04-10 08:39] LABS: BLOOD UREA NITROGEN 26.5 mg/dL (7-18)
[2024-04-10 08:42] LABS: CREATININE 1.2 mg/dL (0.55-1.3)
[2024-04-11] MEDS ORDERED: MEMANTINE HCL 7 MG PO SCH (10:00)
[2024-04-11] MEDS: MEMANTINE HCL 5 MG TABLET (UD) PO SCH (10:18)
[2024-04-14 08:55] LABS: BASO % 0.9 % (0-2.0); EOS % 1.4 % (0-4.5); HEMATOCRIT 38.5 % (32.4-45.2); HEMOGLOBIN 12.7 GM/dL (10.7-15.3); LYMPH % 28.1 % (8-40); MCH 29.4 pg (25.7-33.7); MCHC 32.9 g/dl (32.0-36.0); MEAN CELL VOLUME 89.4 fl (80-96); MONO % 7.3 % (3.8-10.2); NEUT % 62.3 % (42.8-82.8); PLATELET COUNT 272 10^3/uL (134-434); RBC 4.31 M/mm3 (3.60-5.2); RDW 13.5 % (11.6-15.6); WHITE BLOOD COUNT 6.4 K/mm3 (4.0-10.0)
[2024-04-14 10:15] LABS: POTASSIUM 4.4 mmol/L (3.5-5.1)
[2024-04-14 10:17] LABS: BLOOD UREA NITROGEN 41.9 mg/dL (7-18); CALCIUM 10.7 mg/dL (8.5-10.1)
[2024-04-14 10:18] LABS: ALBUMIN 2.9 g/dl (3.4-5.0)
[2024-04-14 10:20] LABS: CREATININE 1.5 mg/dL (0.55-1.3)
[2024-04-14 10:22] LABS: BILIRUBIN,TOTAL 0.3 mg/dL (0.2-1); TOT PROT 6.5 g/dl (6.4-8.2)
[2024-04-14] MEDS ORDERED: SODIUM CHLORIDE 500 ML IV STA (12:04)
[2024-04-14 13:36] VITALS: BMI 31.1
[2024-04-14] MEDS: SODIUM CHLORIDE 500 ML IV STA (14:17)
[2024-04-16 15:04] VITALS: RESP 18
[2024-04-17] MEDS: NYSTATIN 100000 UNIT/GM TOPICAL OINTMENT 15 GM TUBE TP SCH (11:00)
[2024-04-17 14:54] VITALS: BP 104/61; PULSE 83; TEMP 97.3
[2024-04-17] MEDS ORDERED: amLODIPine BESYLATE 5 MG TABLET (FP) PO SCH (15:41)
[2024-04-17] MEDS: SODIUM CHLORIDE 0.9% 500 ML INFUS.BAG IV ONE (15:45)
[2024-04-17] MEDS ORDERED: RAPID SEQUENCE INTUBATION KIT NR ONE (17:06)
[2024-04-17] MEDS: SODIUM CHLORIDE 1,000 ML IV STA (17:20)
[2024-04-17] MEDS: levETIRAcetam 500 MG/5 ML INJECTION VIAL IVPB ONE (17:20)
[2024-04-17] MEDS ORDERED: levETIRAcetam 500 MG/5 ML INJECTION VIAL IVPB ONE (17:20)
[2024-04-17] MEDS ORDERED: MUPIROCIN 2% TOPICAL OINTMENT FOR DECOLONIZATION NS SCH (22:00)
[2024-04-17] MEDS ORDERED: levETIRAcetam 500 MG/5 ML INJECTION VIAL IVPB SCH (22:00)
[2024-04-17] MEDS ORDERED: CHLORHEXIDINE GLUCONATE 4% CLEANSER FOR DECOLONIZATION TP SCH (22:00)
== END 2024-04-17 21:55 | disposition expired ==
LOC: JER 12:43 → JERBED 16:57 → J7W 19:42 → JICU 04-17 17:29
PROVIDERS: ADMIT Internal Medicine
PROC: 3E023GC Introduction of Other Therapeutic Substance into Muscle, Percutaneous Approach (ICD-10-PCS; principal; 2024-04-07)
PROC: 3E033GC Introduction of Other Therapeutic Substance into Peripheral Vein, Percutaneous Approach (ICD-10-PCS; 2024-04-07)
PROC: 3E0337Z Introduction of Electrolytic and Water Balance Substance into Peripheral Vein, Percutaneous Approach (ICD-10-PCS; 2024-04-07)
DX: R41.82 Altered mental status, unspecified (principal); W18.39XA Other fall on same level, initial encounter; Y93.89 Activity, other specified; Y92.89 Other specified places as the place of occurrence of the external cause; F02.80 Dementia in other diseases classified elsewhere, unspecified severity, without behavioral disturbance, psychotic disturbance, mood disturbance, and anxiety; I10 Essential (primary) hypertension; E78.5 Hyperlipidemia, unspecified; R29.6 Repeated falls; G30.9 Alzheimer's disease, unspecified; D64.9 Anemia, unspecified; G40.909 Epilepsy, unspecified, not intractable, without status epilepticus; R00.0 Tachycardia, unspecified; Z87.891 Personal history of nicotine dependence; R94.4 Abnormal results of kidney function studies
CPT/HCPCS: 0241U-QW; 36415; 70450-TC; 71045-TC-FY; 72146-TC; 72148-TC; 80048; 80053; 80061; 81003; 82962; 83735; 84436; 84439; 84443; 84484; 85025; 86850; 86900; 86901; 87086; 93005; 93010; 96361; 96372; 96374; 97116-GP; 97162-GP; 99285-25; G0378; J1644